=== PATIENT | female | born 1990 | race African-American/Black ===

== ENCOUNTER 2016-11-07 11:01 | Emergency (ER) | payer MEDICAID ==
[~2016-11-07] VITALS: Ht 177.8 cm; Wt 67.0 kg
[~2016-11-07 11:01] MED LIST: HYDR2TAB29 PO; LAXATIVE; MELO-184 PO
[2016-11-07 12:24] VITALS: BP 132/74
== END 2016-11-07 12:26 | disposition home or self-care (01) ==
LOC: ED 12:09
DX: R20.2 Paresthesia of skin (principal)
CPT/HCPCS: 99283

== ENCOUNTER 2016-11-09 14:11 | Emergency (ER) | payer MEDICAID ==
[~2016-11-09] VITALS: Ht 177.8 cm; Wt 67.4 kg
[2016-11-09] MEDS ORDERED: SODIUM CHLORIDE FLUSH 10ML SYR IVF ONE (16:30)
[2016-11-09] MEDS ORDERED: SODIUM CHLORIDE 0.9% 1,000ML IVBOLUS ONE (16:30)
[2016-11-09 16:39] LABS: ASPARTATE AMINO TRANSFERASE 14 U/L (15-37); BLOOD UREA NITROGEN 7 mg/dL (7-18)
[2016-11-09] MEDS ORDERED: KETOROLAC 30 MG/1 ML ONE (17:23)
[2016-11-09] MEDS ORDERED: KETOROLAC 30 MG/1 ML IVPush ONE (17:30)
[2016-11-09 18:23] VITALS: BP 120/72
== END 2016-11-09 18:34 | disposition home or self-care (01) ==
LOC: ED 17:43
DX: R51 Headache (principal)
CPT/HCPCS: 36415; 70450; 80053; 81003; 84703; 85025; 96361; 96374; 99285; J1885; J7030

== ENCOUNTER 2017-12-22 10:43 | Emergency (ER) | payer MEDICAID ==
[~2017-12-22] VITALS: Ht 177.8 cm; Wt 69.3 kg
[~2017-12-22 10:43] MED LIST changes: -MELO-184 PO; +MELO15TA24 PO
[2017-12-22 10:58] VITALS: BP 112/77
== END 2017-12-22 11:27 | disposition home or self-care (01) ==
LOC: ED 11:15
DX: L20.9 Atopic dermatitis, unspecified (principal)
CPT/HCPCS: 99283

== ENCOUNTER 2018-02-07 14:22 | Emergency (ER) | payer MEDICAID ==
[~2018-02-07] VITALS: Ht 177.8 cm; Wt 70.3 kg
[2018-02-07 14:24] VITALS: BP 108/69
== END 2018-02-07 15:10 | disposition home or self-care (01) ==
LOC: ED 14:55
DX: K02.9 Dental caries, unspecified (principal); F17.200 Nicotine dependence, unspecified, uncomplicated; Z90.89 Acquired absence of other organs
CPT/HCPCS: 99283

== ENCOUNTER 2018-10-14 10:40 | Emergency (ER) | payer MEDICAID ==
[~2018-10-14] VITALS: Ht 177.8 cm; Wt 70.0 kg
[2018-10-14 10:41] VITALS: BP 118/75
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
[2018-10-14] MEDS ORDERED: KETOROLAC 30 MG/1 ML ONE (11:19)
--- NOTE | 2018-10-14 11:28 | NUR ---
PT MEDICATED PER EMAR FOR PAIN. PT TOELRATED WELL.
[2018-10-14] MEDS ORDERED: KETOROLAC 30 MG/1 ML IM ONE (11:30)
--- NOTE | 2018-10-14 11:42 | NUR ---
PT TO CT NOW.
--- NOTE | 2018-10-14 11:56 | NUR ---
PT BACK TO ROOM FROM CT NOW.
--- NOTE | 2018-10-14 12:41 | NUR ---
PT GIVEN DC INSTRUCTIONS AND SCRIPT. PT EDUCATED REGARDING DC MEDICATION. PT'S AOX4. RESPS EVEN AND UNLABORED. NO ACUTE DISTRESS AT DC.
== END 2018-10-14 12:42 | disposition home or self-care (01) ==
LOC: ED 12:32
DX: S09.90XA Unspecified injury of head, initial encounter (principal); H92.02 Otalgia, left ear; Z90.89 Acquired absence of other organs; F17.200 Nicotine dependence, unspecified, uncomplicated; W22.8XXA Striking against or struck by other objects, initial encounter; Y93.89 Activity, other specified; Y92.009 Unspecified place in unspecified non-institutional (private) residence as the place of occurrence of the external cause; Y99.8 Other external cause status
CPT/HCPCS: 70450; 70486; 96372; 99284; J1885

== ENCOUNTER 2019-04-13 13:39 | Emergency (ER) | payer MEDICAID ==
[~2019-04-13] VITALS: Ht 177.8 cm; Wt 69.2 kg
[2019-04-13 13:50] VITALS: BP 127/79
--- NOTE | 2019-04-13 14:08 | NUR ---
pt to xr. as
[2019-04-13 14:26] LABS: RAPID INFLUENZA A Negative (Negative); RAPID INFLUENZA B Negative (Negative)
== END 2019-04-13 15:10 ==
LOC: ED 15:04
DX: J06.9 Acute upper respiratory infection, unspecified (principal); J02.9 Acute pharyngitis, unspecified; Z90.49 Acquired absence of other specified parts of digestive tract
CPT/HCPCS: 71046; 87400; 99284

== ENCOUNTER 2020-05-17 17:14 | Emergency (ER) | payer MEDICAID ==
[~2020-05-17] VITALS: Ht 177.8 cm; Wt 77.7 kg
[2020-05-17] MEDS ORDERED: IBUPROFEN 600 MG TABLET PO ONE (17:30)
[2020-05-17] MEDS ORDERED: IBUPROFEN 600 MG TABLET ONE (17:45)
[2020-05-17 17:47] VITALS: BP 123/77
--- NOTE | 2020-05-17 18:16 | NUR ---
Patient/Caregiver given discharge instructions and they have confirmed that they understand the instructions. Patient ambulatory WITH [facility]
== END 2020-05-17 18:31 | disposition home or self-care (01) ==
LOC: ED 18:00
DX: S93.402A Sprain of unspecified ligament of left ankle, initial encounter (principal); Z90.89 Acquired absence of other organs; X58.XXXA Exposure to other specified factors, initial encounter; Y93.89 Activity, other specified; Y92.89 Other specified places as the place of occurrence of the external cause; Y99.8 Other external cause status
CPT/HCPCS: 99283

== ENCOUNTER → 2020-09-21 | Outpatient (CLI) | payer MEDICAID ==
[~2020-09-21] MED LIST changes: +GADOTERATE 10 MMOL/20 ML VIAL ONE; +GLUCAGON 1 MG ONE
== END | disposition home or self-care (01) ==
LOC: EDSTATUS 06-27 10:00 → CFH 08:18 → EDSTATUS 09:30
PROVIDERS: ATTEND Internal Medicine Gastroenterology
DX: N88.8 Other specified noninflammatory disorders of cervix uteri (principal); R10.84 Generalized abdominal pain; E73.9 Lactose intolerance, unspecified; R19.15 Other abnormal bowel sounds
CPT/HCPCS: 72197; 74183; A9575; J1610

== ENCOUNTER 2020-11-16 17:25 | Emergency (ER) | payer MEDICAID ==
[~2020-11-16] VITALS: Ht 177.8 cm; Wt 78.7 kg
[~2020-11-16 17:25] MED LIST changes: -GADOTERATE 10 MMOL/20 ML VIAL ONE; -GLUCAGON 1 MG ONE
[2020-11-16 17:54] VITALS: BP 120/64
[2020-11-16 18:37] LABS: BASOPHILS % (AUTO) 1 % (0-1); EOSINOPHILS % (AUTO) 4 % (1-7); LYMPHOCYTES % (AUTO) 34 % (22-44); MEAN CORPUSCULAR HEMOGLOBIN 31.4 pg (27.0-34.8); MEAN CORPUSCULAR HGB CONC 33.5 g/dL (32.4-35.8); MEAN PLATELET VOLUME 8.2 fL (7.4-10.4); MONOCYTES % (AUTO) 9 % (2-9); NEUTROPHILS % (AUTO) 52 % (42-75); PLATELET COUNT 288 x10^3/uL (130-400); RED CELL DISTRIBUTION WIDTH 13.4 % (9.6-15.2)
[2020-11-16 18:48] LABS: ALANINE AMINOTRANSFERASE 35 U/L (12-78); ANION GAP 4 mmol/L (5-15); CALCIUM 9.4 mg/dL (8.5-10.1); CHLORIDE 106 mmol/L (98-107); CREATININE 0.88 mg/dL (0.55-1.02)
[2020-11-16 18:53] LABS: ALKALINE PHOSPHATASE 64 U/L (45-117); BILIRUBIN,TOTAL 0.2 mg/dL (0.2-1.0); TOTAL PROTEIN 8.5 g/dL (6.4-8.2)
[2020-11-16] MEDS ORDERED: KETOROLAC 30 MG/1 ML IM ONE (19:30)
[2020-11-16] MEDS ORDERED: METHOCARBAMOL 750 MG TABLET PO ONE (19:30)
[2020-11-16] MEDS ORDERED: METHOCARBAMOL 750 MG TABLET ONE (19:41)
[2020-11-16] MEDS ORDERED: KETOROLAC 60 MG/2 ML ONE (19:41)
[2020-11-16 20:30] LABS: MICROSCOPIC AUTO
== END 2020-11-16 21:09 | disposition home or self-care (01) ==
LOC: ED 21:00
DX: S39.012A Strain of muscle, fascia and tendon of lower back, initial encounter (principal); F17.210 Nicotine dependence, cigarettes, uncomplicated; Z90.89 Acquired absence of other organs; X58.XXXA Exposure to other specified factors, initial encounter; Y93.89 Activity, other specified; Y92.89 Other specified places as the place of occurrence of the external cause; Y99.8 Other external cause status
CPT/HCPCS: 36415; 72110; 80053; 81001; 84703; 85025; 87086; 96372; 99284; 99406; J1885; J7512; 87077; 87186